=== PATIENT | female | born 1965 | race Caucasian/White ===

== ENCOUNTER → 2016-09-30 | Outpatient (CLI) | payer BC ==
[~2016-09-30] VITALS: Ht 175.3 cm; Wt 92.5 kg
[~2016-09-30] MED LIST: ADVAIR 250-501 EACH INH; LOSARTAN-HCTZ1 EAC3 PO; RESTASIS1 EACH OPHTHALMIC; VENTOLIN HFA 1818 GM INH
--- NOTE | ~2016-09-30 | EKG ---
[address] [address] ELECTROCARDIOGRAM REPORT Name: DONALD GROSS [id number] Admission: 09/30/16 Attend Phys: Castro Abdi MD Discharge: Date of : 65 Report #: [id number] THIS REPORT FOR: //name// [facility] Test Date: 2016-09-30 Test Time: 09:08:35 Pat Name: DONALD GROSS Department: Room: 150 5 Gender: F Certified First Assistant: REINIER : 1965 Requested By: Castro Abdi Order Number: [id number] MD: [place]gu[place] Measurements Intervals [place] Rate: 64 P: 40 [place]: 156 QRS: -22 QRSD: 116 T: 20 QT: 479 QTc: 495 Interpretive Statements Sinus rhythm Nonspecific intraventricular conduction delay No previous ECG available for comparison Electronically Signed On 10-01-2016 13:25:29 CDT by South Argueta [email or web address] <ELECTRONICALLY SIGNED> By: [place]gu[place] MD 10/01/16 1325 [id number] 7 [place] Argueta MD /HAYDER
[2016-09-30 09:02] LABS: CALCIUM 9.2 mg/dL (8.5-10.1); CREATININE 0.7 mg/dL (0.6-1.3)
[2016-09-30 09:03] LABS: POTASSIUM 2.8 mmol/L (3.5-5.1)
== END ==
LOC: TBA 05:30 → OR 05:30 → LABMALL 08:07 → OR 08:07 → EDSTATUS 10:50 → OR 14:11
PROVIDERS: Orthopaedic Surgery
DX: I10 Essential (primary) hypertension (principal); J45.909 Unspecified asthma, uncomplicated

== ENCOUNTER 2016-10-12 05:37 | Day surgery (SDC) | payer BC ==
[~2016-10-12] VITALS: Ht 175.3 cm; Wt 91.6 kg
--- NOTE | ~2016-10-12 | O ---
[facility] [place] [address] OPERATIVE REPORT Name: DONALD GROSS Room #: 150-7 [facility] M..#: [id number] Admission: 10/12/16 Attend Phys: Castro Abdi MD Discharge: Date of : 65 Report #: [id number] THIS REPORT FOR: //name// CC: Genoveva Abdi DATE OF SERVICE: 10/12/2016 PREOPERATIVE DIAGNOSIS: Right knee posterior horn medial meniscus tear. POSTOPERATIVE DIAGNOSES: 1. Root tear posterior horn medial meniscus, right knee. 2. Grade 3 chondromalacia medial femoral condyle. 3. Medial plica. PROCEDURE: 1. Right knee arthroscopy with partial medial meniscectomy. 2. Chondroplasty medial femoral condyle. 3. Medial plica excision. SURGEON: Castro Abdi MD. BIOMEDICAL ENGINEERING SUPERVISOR: Jacquie Gallegos PA-C. ANESTHESIA: LMA. TOURNIQUET TIME: 16 minutes. COMPLICATIONS: None. SPECIMENS: None. CONDITION UPON LEAVING THE OPERATING ROOM: Stable. INDICATIONS FOR PROCEDURE: The patient is a 51-year-old female who had medial-sided right knee pain. She had an MRI scan showing to have a root tear of the posterior horn of the medial meniscus and after discussion with her, she elected for right knee arthroscopy with partial medial meniscectomy and debridement as needed. DESCRIPTION OF PROCEDURE: Risks, benefits, alternatives, complications were discussed in detail with the patient including but not limited to risk of anesthesia, risk of damage to nerves, arteries, blood vessels, risk for infection, bleeding, risk for continued knee pain and need for reoperation. Informed consent was obtained from the patient. Right knee was appropriately marked in the preoperative holding area. IV Ancef was given for preoperative [address] [address] OPERATIVE REPORT Name: DONALD GROSS REMY Room #: 150-7 [facility] M.R.#: [id number] Admission: 10/12/16 Attend Phys: Castro Abdi MD Discharge: Date of : 65 Report #: [id number] antibiotics. She was brought to the operating room and placed in supine position on operating room table. LMA anesthesia was induced without complication. Tourniquet was placed on the right thigh. Right lower extremity was prepped and draped in normal sterile fashion. Timeout was performed properly identifying the patient and procedure as well as the instrumentation. All in the operating room were in agreement. Right lower extremity was exsanguinated, tourniquet was inflated. Tourniquet time was 16 minutes. Standard anterolateral portal was established with an 11 blade through the skin. Arthroscope was introduced into the patellofemoral compartment, diagnostic arthroscopy was undertaken. Patellofemoral compartment was visualized and found to have grade 2 chondromalacia of the patella. Medial gutter was visualized and found to have a medial plica. Medial compartment was visualized and a medial portal was established under arthroscopic visualization. Probe was introduced into the medial compartment and there was noted to be a root tear of the posterior horn of the medial meniscus. This was trimmed back to stable rim with an arthroscopic biter and smoothed back with a shaver. In addition, there was a grade 3 chondromalacia of the medial femoral condyle with several unstable cartilaginous flaps. This was smoothed back with an oscillating shaver. Notch was visualized and found to have an intact anterior cruciate ligament. Lateral compartment was visualized and found to have an intact lateral meniscus and articular cartilage. Scope was placed back in the patellofemoral compartment and the medial plica was excised with an oscillating shaver. After this, all fluid was allowed to drain from the knee. Knee was injected with 5 mL of 0.5% Marcaine. Incision was closed with 3-0 nylon. Soft dressing of Adaptic, 4 x 4, Webril, Agustin wrap were applied. The patient tolerated this procedure well and went to the recovery room under care of anesthesia postoperatively. By: 0944 [id number] Castro Abdi MD /nallely
[~2016-10-12 05:37] MED LIST changes: +POTASSIUM20 PO
[2016-10-12 07:44] LABS: CALCIUM 8.2 mg/dL (8.5-10.1); CREATININE 0.6 mg/dL (0.6-1.0); POTASSIUM 3.3 mmol/L (3.5-5.1)
[2016-10-12 08:00] VITALS: BP 118/79
[2016-10-12] MEDS ORDERED: CRUTCHES MISCELL (09:22)
== END 2016-10-12 10:15 ==
LOC: TBA 05:37 → OR 05:37
PROVIDERS: Orthopaedic Surgery
DX: M23.221 Derangement of posterior horn of medial meniscus due to old tear or injury, right knee (principal); M94.261 Chondromalacia, right knee; M67.51 Plica syndrome, right knee; I10 Essential (primary) hypertension; G47.33 Obstructive sleep apnea (adult) (pediatric); J45.909 Unspecified asthma, uncomplicated
CPT/HCPCS: 50010; 50101; 50405; 50612; 51038; 54170; 56526; 62110; 62900; 70005

== ENCOUNTER → 2019-06-08 | Outpatient (CLI) | payer BC ==
[~2019-06-08] MED LIST changes: +CRUTCHES MISCELL
== END ==
LOC: BC 10:45
DX: Z12.31 Encounter for screening mammogram for malignant neoplasm of breast (principal)

== ENCOUNTER → 2019-06-14 | Outpatient (CLI) | payer BC | LOC: ULTRA 11:06 | DX: N83.201 Unspecified ovarian cyst, right side (principal); N63.20 Unspecified lump in the left breast, unspecified quadrant ==

== ENCOUNTER → 2020-01-16 | Outpatient (CLI) | payer BC | LOC: RAD 11:47 | PROVIDERS: ATTEND Family Medicine | DX: R06.00 Dyspnea, unspecified (principal) ==